=== PATIENT | male | born 1975 | race Caucasian/White ===

== ENCOUNTER 2019-12-16 13:13 | Emergency (ER) | payer OTHER ==
[2019-12-16 13:16] VITALS: TEMP 98.3
[2019-12-16] MEDS ORDERED: KETOROLAC 15 MG/ML 1 ML VIAL IVP STA (13:35)
[2019-12-16] MEDS ORDERED: SODIUM CHLORIDE 0.9% 1,000 ML IV STA (13:35)
[2019-12-16 13:53] LABS: Basophils # (A) 0.1 k/uL (0-0.2); Basophils % (A) 0 %; Eosinophils # (A) 0.3 k/uL (0-0.7); Eosinophils % (A) 2 %; HCT 50.8 % (39.0-53.0); HGB 16.9 gm/dL (13.0-17.5); Lymphocytes # (A) 1.7 k/uL (1.0-4.8); Lymphocytes % (A) 11 %; MCH 31.5 pg (25.0-35.0); MCHC 33.3 g/dL (31.0-37.0); MCV 94.5 fL (80.0-100.0); Mean Platelet Volume 6.6; Monocytes # (A) 0.6 k/uL (0-1.0); Monocytes % (A) 4 %; Neutrophils # (A) 12.1 k/uL (1.3-7.7); Neutrophils % (A) 81 %; Platelet Count 194 k/uL (150-450); RBC 5.37 m/uL (4.30-5.90); RDW 12.7 % (11.5-15.5)
[2019-12-16 14:02] LABS: ALT 24 U/L (4-49); AST 34 U/L (17-59); African American GFR (CKD) >90 (>60 ml/min/1.73 sqM); Albumin 3.7 g/dL (3.5-5.0); Alkaline Phosphatase 77 U/L (38-126); Amylase 47 U/L (30-110); Anion Gap 4 mmol/L; Blood Urea Nitrogen 11 mg/dL (9-20); Calcium 8.9 mg/dL (8.4-10.2); Carbon Dioxide 25 mmol/L (22-30); Chloride 104 mmol/L (98-107); Glucose 120 mg/dL (74-99); Non-African American GFR(CKD) >90 (>60 ml/min/1.73 sqM); Potassium 3.8 mmol/L (3.5-5.1); Sodium 133 mmol/L (137-145); Total Bilirubin 0.6 mg/dL (0.2-1.3); Total Protein 5.8 g/dL (6.3-8.2)
--- NOTE | 2019-12-16 14:02 | ED ---
General Adult HPI - General Chief complaint: Abdominal Pain Stated complaint: Kidney Pain Time Seen by Provider: 12/16/19 13:18 Source: patient, RN notes reviewed Mode of arrival: ambulatory Limitations: no limitations - History of Present Illness Initial comments: 44-year-old male with a past medical history of CVA TIA, hyperlipidemia, hypertension presents to the emergency room for a chief complaint of right-sided low back area patient reports that he was at work today when he started to get a sudden pain in his right low back. Patient is concerned it could be a kidney stone. Patient states it does not worsen with movement. Patient denies any radiating pain to the abdomen or testicle. Patient denies nausea vomiting.Patient has no other complaints at this time including shortness of breath, chest pain, abdominal pain, nausea or vomiting, headache, or visual changes. - Related Data Previous Rx's Medication Instructions Recorded Ciprofloxacin HCl [Cipro] 500 mg PO Q12HR #14 tablet 10/21/18 Ibuprofen [Motrin] 600 mg PO Q8HR PRN #20 tab 12/16/19 Ondansetron [Zofran ODT] 4 mg PO Q8HR PRN #15 tab 12/16/19 Tamsulosin [Flomax] 0.4 mg PO DAILY #10 cap 12/16/19 Allergies Allergy/AdvReac Type Severity Reaction Status Date / Time No Known Allergies Allergy Verified 12/16/19 13:16 Review of Systems ROS Statement: Those systems with pertinent positive or pertinent negative responses have been documented in the HPI. ROS Other: All systems not noted in ROS Statement are negative. Past Medical History Past Medical History: CVA/TIA, Hyperlipidemia, Hypertension History of Any Multi-Drug Resistant Organisms: None Reported Past Surgical History: No Surgical Hx Reported Past Psychological History: No Psychological Hx Reported Smoking Status: Current every day smoker Past Alcohol Use History: None Reported Past Drug Use History: Marijuana General Exam Limitations: no limitations General appearance: alert, in no apparent distress Head exam: Present: atraumatic, normocephalic, normal inspection Eye exam: Present: normal appearance, PERRL, EOMI. Absent: scleral icterus, co njunctival injection, periorbital swelling ENT exam: Present: normal exam, mucous membranes moist Neck exam: Present: normal inspection, full ROM. Absent: tenderness, meningismus, lymphadenopathy Respiratory exam: Present: normal lung sounds bilaterally. Absent: respiratory distress, wheezes, rales, rhonchi, stridor Cardiovascular Exam: Present: regular rate, normal rhythm, normal heart sounds. Absent: systolic murmur, diastolic murmur, rubs, gallop, clicks GI/Abdominal exam: Present: soft, normal bowel sounds. Absent: distended, tenderness, guarding, rebound, rigid Back exam: Absent: CVA tenderness (R), CVA tenderness (L) Neurological exam: Present: alert Course Vital Signs 12/16/19 12/16/19 13:14 15:27 Temperature 98.3 F Pulse Rate 94 98 Respiratory 20 17 Rate Blood Pressure 178/104 148/96 O2 Sat by Pulse 98 97 Oximetry Medical Decision Making - Medical Decision Making Vitals are stable. CBC shows leukocytosis of 15 which is likely reactive. CMP is unremarkable. Urinalysis does show 2+ ketones with 102 red blood cells. Red blood cells are likely related to kidney stone. Patient was given a liter of fluids as ketones are likely secondary to dehydration. CT abdomen and pelvis shows moderate right-sided hydronephrosis secondary to obstructing distal right ureteral calculus measuring 3 mm in diameter. I did also discuss several findings that were incidental with patient including renal lesion, extensive atherosclerotic aortic changes, aortic stenosis, and multiple lower lobe pulmonary nodules with the largest measuring 5 mm. I discussed the patient needs to follow up with primary care closely for this. Patient states he is working on doing this and denies any other symptoms. Patient will be given medications for kidney stone. Will follow up with urology. Will return for any worsening symptoms. - Lab Data Result diagrams: 12/16/19 13:42 12/16/19 13:42 Lab Results 12/16/19 12/16/19 12/16/19 Range/Units 13:42 13:42 14:16 WBC 15.0 H (3.8-10.6) k/uL RBC 5.37 (4.30-5.90) m/uL Hgb 16.9 (13.0-17.5) gm/dL Hct 50.8 (39.0-53.0) % MCV 94.5 (80.0-100.0) fL MCH 31.5 (25.0-35.0) pg MCHC 33.3 (31.0-37.0) g/dL RDW 12.7 (11.5-15.5) % Plt Count 194 (150-450) k/uL Neutrophils % 81 % Lymphocytes % 11 % Monocytes % 4 % Eosinophils % 2 % Basophils % 0 % Neutrophils # 12.1 H (1.3-7.7) k/uL Lymphocytes # 1.7 (1.0-4.8) k/uL Monocytes # 0.6 (0-1.0) k/uL Eosinophils # 0.3 (0-0.7) k/uL Basophils # 0.1 (0-0.2) k/uL Sodium 133 L (137-145) mmol/L Potassium 3.8 (3.5-5.1) mmol/L Chloride 104 (98-107) mmol/L Carbon Dioxide 25 (22-30) mmol/L Anion Gap 4 mmol/L BUN 11 (9-20) mg/dL Creatinine 0.96 (0.66-1.25) mg/dL Est GFR (CKD-EPI)AfAm >90 (>60 ml/min/1.73 sqM) Est GFR (CKD-EPI)NonAf >90 (>60 ml/min/1.73 sqM) Glucose 120 H (74-99) mg/dL Calcium 8.9 (8.4-10.2) mg/dL Total Bilirubin 0.6 (0.2-1.3) mg/dL AST 34 (17-59) U/L ALT 24 (4-49) U/L Alkaline Phosphatase 77 (38-126) U/L Total Protein 5.8 L (6.3-8.2) g/dL Albumin 3.7 (3.5-5.0) g/dL Amylase 47 (30-110) U/L Lipase 249 (23-300) U/L Urine Color Light Red Urine Appearance Cloudy (Clear) Urine pH 6.0 (5.0-8.0) Ur Specific [place] 1.026 (1.001-1.035) Urine Protein 1+ H (Negative) Urine Glucose (UA) Negative (Negative) Urine Ketones 2+ H (Negative) Urine Blood Large H (Negative) Urine Nitrite Negative (Negative) Urine Bilirubin Negative (Negative) Urine Urobilinogen <2.0 (<2.0) mg/dL Ur Leukocyte Esterase Negative (Negative) Urine RBC 102 H (0-5) /hpf Urine WBC 2 (0-5) /hpf Ur Squamous Epith Cells 2 (0-4) /hpf Calcium Oxalate Crystal Few H (None) /hpf Urine Mucus Rare H (None) /hpf Disposition Clinical Impression: Kidney stone on right side Disposition: HOME SELF-CARE Condition: Good Instructions (If sedation given, give patient instructions): Kidney Stones (ED) Additional Instructions: please discuss all incidental findings from CAT scan with your primary care doctor. these include atherosclerotic aorta, renal lesion, lung nodules. Follow-up with urology as well. Return to the emergency room for any worsening symptoms. take Motrin for pain. If pain is irritating Tylenol [address] operate machinery while taking this. Take Zofran as needed for nausea. Take Flomax as directed Prescriptions: Tamsulosin [Flomax] 0.4 mg PO DAILY #10 cap Ibuprofen [Motrin] 600 mg PO Q8HR PRN #20 tab PRN Reason: Pain Ondansetron [Zofran ODT] 4 mg PO Q8HR PRN #15 tab PRN Reason: Nausea Is patient prescribed a controlled substance at d/c from ED?: No Referrals: Fausto Harrison MD [REFERRING] - 1-2 days Rik Adams MD [STAFF PHYSICIAN] - 1-2 days Time of Disposition: 15:48
--- NOTE | 2019-12-16 14:08 | CT ---
EXAMINATION TYPE: CT abdomen pelvis wo con DATE OF EXAM: 12/16/2019 COMPARISON: None HISTORY: Right flank pain CT DLP: 625.5 mGycm Automated exposure control for dose reduction was used. TECHNIQUE: Helical acquisition of images was performed from the lung bases through the pelvis. FINDINGS: LUNG BASES: Tiny pulmonary nodules are seen. The largest measuring 5 mm in posteriorly in the right l ower lobe.. LIVER/GB: Changes of cholelithiasis. PANCREAS: No significant abnormality is seen. SPLEEN: No significant abnormality is seen. ADRENALS: No significant abnormality is seen. KIDNEYS: There are 3 calcifications in the right kidney measuring less than 5 mm. There is a small pe rinephric fluid. There is a exophytic lesion extending off the posterior margin of the right kidney i ndeterminate by noncontrast technique. Moderate hydronephrosis. There is a 3 mm distal right ureteral calculus at the level of the mid pelvis. There are 2-3 punctate 1 to 2 mm left renal calculi. No hydronephrosis. ADENOPATHY: None visualized. OSSEOUS STRUCTURES: Hypertrophic changes of the spine are seen. There is an endplate deformity of T1 2 and L1. BOWEL: Bowel gas pattern nonspecific. Appendix normal. OTHER: Aorta of normal caliber however there is extensive atherosclerotic change of the aorta with po ssible significant stenosis at the level of L3 3. Correlate clinically. IMPRESSION: 1. Moderate right hydronephrosis secondary to obstructing distal right ureteral calculus measuring 3 mm in diameter. 2. Bilateral nephrolithiasis. Indeterminate right renal lesion 3. Cholelithiasis. 4. Extensive atherosclerotic change aorta. Correlate for aortic stenosis of the the abdominal aorta a t the level of L3. 5. Multiple lower lobe pulmonary nodules the largest measuring 5 mm. Recommend follow-up CT chest.
[2019-12-16 14:29] LABS: Appearance,Urine Cloudy (Clear); Bilirubin,Urine Negative (Negative); Blood,Urine Large (Negative); Calcium Oxalate Crystals,Urine Few /hpf; Color,Urine Light Red; Glucose,Urine (UA) Negative (Negative); Ketones,Urine 2+ (Negative); Leukocyte Esterase,Urine Negative (Negative); Mucus,Urine Rare /hpf; Nitrite,Urine Negative (Negative); Protein,Urine 1+ (Negative); RBC,Urine 102 /hpf (0-5); Specific Gravity,Urine 1.026 (1.001-1.035); Squamous Epithelial Cell,Urine 2 /hpf (0-4); Urobilinogen,Urine <2.0 mg/dL (<2.0); WBC,Urine 2 /hpf (0-5)
--- NOTE | 2019-12-16 14:38 | XR ---
EXAMINATION TYPE: XR KUB DATE OF EXAM: 12/16/2019 2:28 PM CLINICAL HISTORY: Right-sided kidney stone. TECHNIQUE: Two Upright KUB images of the abdomen are obtained. COMPARISON: CT abdomen and pelvis earlier today. FINDINGS: The 3 mm round distal right ureter calculus over the right sacrum near the SI joint is stab le in position. Tiny punctate calculi bilaterally on CT less well-seen on plain films. Overall nonobstructive bowel gas pattern redemonstrated. Lung bases remain clear. In retrospect there is splenomegaly which correlates with CT axial image 52 which may require nonemergent follow-up. IMPRESSION: Stable 3 mm distal right ureter calculus.
[2019-12-16 15:28] VITALS: BP 148/96; PULSE 98; RESP 17
[2019-12-16] MEDS ORDERED: ACET/COD 300 MG/30 MG STARTER PACK 6 TAB BTL PO STA (15:50)
== END 2019-12-16 16:27 | disposition home or self-care (01) ==
LOC: EC 13:13
DX: N13.2 Hydronephrosis with renal and ureteral calculous obstruction (principal); D72.829 Elevated white blood cell count, unspecified; F17.200 Nicotine dependence, unspecified, uncomplicated; Z86.73 Personal history of transient ischemic attack (TIA), and cerebral infarction without residual deficits
CPT/HCPCS: 36415; 80053; 82150; 83690; 85025; 81001; 74018; 74176; 99284; 96374; 96361 ×3; J1885